=== PATIENT | female | born 1980 | race Caucasian/White ===

== ENCOUNTER 2016-12-02 18:32 | Emergency (ER) | payer OTHER ==
[~2016-12-02] VITALS: Ht 154.9 cm; Wt 88.6 kg
[2016-12-02] MEDS ORDERED: BUPR100 PO (18:45)
[2016-12-02] MEDS ORDERED: CLON1 PO (18:45)
[2016-12-02] MEDS ORDERED: FLUO-191 PO (18:45)
[2016-12-02 19:12] LABS: BASOPHILS % (AUTO) 0.5 % (0.0-2.0); EOSINOPHILS % (AUTO) 2.2 % (1.0-6.0); HEMATOCRIT 36.5 % (36-46); LYMPHOCYTES # (AUTO) 2.8 K/uL (1.0-4.8); LYMPHOCYTES % (AUTO) 33.9 % (22.0-44.0); MEAN CORPUSCULAR HEMOGLOBIN 29.3 pg (26.0-34.0); MEAN CORPUSCULAR HGB CONC 32.8 G/dL (31.0-37.0); MEAN CORPUSCULAR VOLUME 89 fL (80-100); MONOCYTES # (AUTO) 0.6 K/uL (0.1-1.0); MONOCYTES % (AUTO) 6.8 % (2.0-9.0); NEUTROPHILS # (AUTO) 4.7 K/uL (1.8-7.7); NEUTROPHILS % (AUTO) 56.6 % (40.0-70.0); PLATELET COUNT (AUTO) 288 K/uL (150-450); RED BLOOD CELL COUNT(AUTO) 4.09 MIL/uL (4.00-5.20); RED CELL DISTRIBUTION WIDTH 14.7 % (11.5-14.5); WHITE BLOOD COUNT (AUTO) 8.4 K/uL (4.5-11.0)
[2016-12-02 19:21] LABS: ANION GAP 8 mmol/L (8-16); CALCIUM, TOTAL 9.2 mg/dL (8.8-10.5); CARBON DIOXIDE 28 mmol/L (22-29); CHLORIDE 106 mmol/L (98-107); CREATININE 0.93 mg/dL (0.60-1.30); GLOMERULAR FILTR. RATE CALC > 60 mL/min (>60); POTASSIUM 3.8 mmol/L (3.5-5.1); SODIUM SERUM 142 mmol/L (136-145); UREA NITROGEN, BLOOD 15 mg/dL (7-18)
[2016-12-02 19:27] LABS: ALANINE AMINOTRANSFERASE 30 U/L (12-78); ALBUMIN 3.5 g/dL (3.4-5.0); ASPARTATE AMINOTRANSFERASE 21 U/L (15-37); BILIRUBIN,TOTAL 0.2 mg/dL (0.1-1.0); TOTAL PROTEIN, SERUM 6.8 g/dL (6.4-8.2)
[2016-12-02 20:06] LABS: APPEARANCE,URINE CLEAR (CLEAR); GLUCOSE, URINE (UA) NEGATIVE (NEGATIVE); KETONES,URINE NEGATIVE (NEGATIVE); LEUKOCYTE ESTERASE ,URINE NEGATIVE (NEGATIVE); OCCULT BLOOD,URINE NEGATIVE (NEGATIVE); PROTEIN,URINE NEGATIVE (NEGATIVE)
[2016-12-02 20:10] LABS: ADD UA MICROSCOPIC NO
[2016-12-02] MEDS ORDERED: LevETIRAcetam 1,000 MG in DEXTROSE 5%-WATER 100 ML IV ONE (20:30)
[2016-12-02] MEDS ORDERED: LORazepam 2 MG/ML VIAL IVP ONE (20:30)
[2016-12-02] MEDS ORDERED: KETOROLAC TROMETHAMINE 30 MG/ML VIAL IVP ONE (20:30)
[2016-12-02 21:39] VITALS: BP 125/75
== END 2016-12-02 21:41 | disposition home or self-care (01) ==
LOC: EMS 18:37
DX: G40.909 Epilepsy, unspecified, not intractable, without status epilepticus (principal); F41.9 Anxiety disorder, unspecified; G89.29 Other chronic pain
CPT/HCPCS: 36415; 80053; 80185; 80307; 80346; 81003; 84703; 85025; 96365; 96375; 99284; J0712; J1885; J2060; J7060

== ENCOUNTER 2017-09-07 16:20 | Emergency (ER) | payer OTHER ==
[~2017-09-07] VITALS: Ht 154.9 cm; Wt 81.8 kg
[~2017-09-07 16:20] MED LIST: BUPR100 PO; CLON1 PO; FLUO-191 PO
[2017-09-07 19:30] VITALS: BP 122/75
[2017-09-07] MEDS ORDERED: DEXAMETHASONE SOD PHOS 4 MG/ML 5 ML VIAL IM ONE (19:45)
== END 2017-09-07 19:55 | disposition home or self-care (01) ==
LOC: EMS 16:25
DX: J40 Bronchitis, not specified as acute or chronic (principal); F31.9 Bipolar disorder, unspecified; Z76.0 Encounter for issue of repeat prescription
CPT/HCPCS: 96372; 99283; J1100

== ENCOUNTER 2017-09-23 22:56 | Emergency (ER) | payer OTHER ==
[~2017-09-23] VITALS: Ht 162.6 cm; Wt 86.4 kg
[2017-09-24 03:37] VITALS: BP 110/63
== END 2017-09-24 03:41 | disposition home or self-care (01) ==
LOC: EMS 22:57
DX: F19.129 Other psychoactive substance abuse with intoxication, unspecified (principal); M79.604 Pain in right leg
CPT/HCPCS: 36415; 99283; G0480

== ENCOUNTER 2018-07-17 11:59 | Emergency (ER) | payer OTHER ==
[~2018-07-17] VITALS: Ht 154.9 cm; Wt 79.5 kg
[2018-07-17] MEDS ORDERED: LIDOCAINE 1%/EPI 1:200,000/PF 30 ML VIAL INJ ONE (12:45)
[2018-07-17] MEDS ORDERED: ACETAMINOPHEN 325 MG TABLET PO ONE (12:45)
[2018-07-17] MEDS ORDERED: KETOROLAC TROMETHAMINE 60 MG/2 ML VIAL IM ONE (12:45)
[2018-07-17 13:19] VITALS: BP 111/69
== END 2018-07-17 13:29 | disposition home or self-care (01) ==
LOC: EMS 12:00
DX: L02.31 Cutaneous abscess of buttock (principal); L03.317 Cellulitis of buttock; F31.9 Bipolar disorder, unspecified
CPT/HCPCS: 10060; 96372; 99283; J1885; J3490

== ENCOUNTER 2020-05-25 15:34 | Emergency (ER) | payer OTHER ==
[~2020-05-25] VITALS: Ht 154.9 cm; Wt 91.4 kg
[~2020-05-25 15:34] MED LIST changes: +ALPR0.5T8 PO; +CLIN300C3 PO; +CLON-595 PO; -CLON1 PO; +METH10 PO; +[UNRECOGNIZED DRUG - CODE] TP
[2020-05-25] MEDS ORDERED: KETOROLAC TROMETHAMINE 30 MG/ML VIAL IM ONE (17:45)
[2020-05-25] MEDS ORDERED: ONDANSETRON HCL 4 MG TABLET PO ONE (17:45)
[2020-05-25 18:30] VITALS: BP 123/81
[2020-05-25 19:01] LABS: BASOPHILS % (AUTO) 0.4 % (0.0-2.0); EOSINOPHILS % (AUTO) 1.4 % (1.0-6.0); HEMATOCRIT 38.3 % (36-46); HEMOGLOBIN 12.6 g/dL (12.0-16.0); LYMPHOCYTES # (AUTO) 2.8 K/uL (1.0-4.8); LYMPHOCYTES % (AUTO) 31.9 % (22.0-44.0); MEAN CORPUSCULAR HEMOGLOBIN 28.8 pg (26.0-34.0); MEAN CORPUSCULAR HGB CONC 32.9 G/dL (31.0-37.0); MEAN CORPUSCULAR VOLUME 88 fL (80-100); MONOCYTES # (AUTO) 0.5 K/uL (0.1-1.0); NEUTROPHILS # (AUTO) 5.3 K/uL (1.8-7.7); NEUTROPHILS % (AUTO) 60.3 % (40.0-70.0); PLATELET COUNT (AUTO) 357 K/uL (150-450); RED BLOOD CELL COUNT(AUTO) 4.37 MIL/uL (4.00-5.20); RED CELL DISTRIBUTION WIDTH 15.6 % (11.5-14.5)
[2020-05-25 19:10] LABS: CALCIUM, TOTAL 9.4 mg/dL (8.8-10.5); CREATININE 1.09 mg/dL (0.60-1.30); POTASSIUM 3.9 mmol/L (3.5-5.1)
[2020-05-25 19:22] LABS: ALBUMIN 3.8 g/dL (3.4-5.0); BILIRUBIN,TOTAL 0.1 mg/dL (0.1-1.0); TOTAL PROTEIN, SERUM 7.1 g/dL (6.4-8.2)
== END 2020-05-25 18:50 | disposition left against medical advice (07) ==
LOC: EMS 15:34
DX: R10.9 Unspecified abdominal pain (principal); F31.9 Bipolar disorder, unspecified; Z88.0 Allergy status to penicillin; Z88.5 Allergy status to narcotic agent
CPT/HCPCS: 36415; 80053; 81025; 83690; 84702; 85025; 96372; 99283; J1885; Q0162

== ENCOUNTER 2020-07-19 13:04 | Emergency (ER) | payer OTHER ==
[~2020-07-19] VITALS: Ht 149.9 cm; Wt 75.0 kg
[~2020-07-19 13:04] MED LIST changes: +BUPR-121 PO; -BUPR100 PO
[2020-07-19] MEDS ORDERED: SODIUM CHLORIDE 0.9% 1,000 ML IV ONE (14:30)
[2020-07-19] MEDS ORDERED: LORazepam 2 MG/ML VIAL IVP ONE (14:30)
[2020-07-19] MEDS ORDERED: ONDANSETRON HCL 4 MG/2 ML VIAL IVP ONE (14:30)
[2020-07-19 15:08] LABS: BASOPHILS % (AUTO) 0.2 % (0.0-2.0); EOSINOPHILS % (AUTO) 0.1 % (1.0-6.0); HEMATOCRIT 38.3 % (36-46); HEMOGLOBIN 12.7 g/dL (12.0-16.0); LYMPHOCYTES # (AUTO) 1.3 K/uL (1.0-4.8); LYMPHOCYTES % (AUTO) 12.7 % (22.0-44.0); MEAN CORPUSCULAR HEMOGLOBIN 29.2 pg (26.0-34.0); MEAN CORPUSCULAR HGB CONC 33.2 G/dL (31.0-37.0); MEAN CORPUSCULAR VOLUME 88 fL (80-100); MONOCYTES # (AUTO) 0.3 K/uL (0.1-1.0); NEUTROPHILS # (AUTO) 8.9 K/uL (1.8-7.7); PLATELET COUNT (AUTO) 354 K/uL (150-450); RED BLOOD CELL COUNT(AUTO) 4.36 MIL/uL (4.00-5.20); RED CELL DISTRIBUTION WIDTH 13.7 % (11.5-14.5)
[2020-07-19 15:18] LABS: ANION GAP 10 mmol/L (8-16); CALCIUM, TOTAL 9.2 mg/dL (8.8-10.5); CARBON DIOXIDE 26 mmol/L (22-29); CHLORIDE 97 mmol/L (98-107); CREATININE 0.81 mg/dL (0.60-1.30); GLOMERULAR FILTR. RATE CALC > 60 mL/min (>60); GLUCOSE,RANDOM 119 mg/dL (70-110); POTASSIUM 3.3 mmol/L (3.5-5.1); SODIUM SERUM 133 mmol/L (136-145); UREA NITROGEN, BLOOD 7 mg/dL (7-18)
[2020-07-19 15:26] LABS: APPEARANCE,URINE CLEAR (CLEAR); BILIRUBIN,URINE NEGATIVE (NEGATIVE); GLUCOSE, URINE (UA) NEGATIVE (NEGATIVE); KETONES,URINE NEGATIVE (NEGATIVE); LEUKOCYTE ESTERASE ,URINE NEGATIVE (NEGATIVE); NITRATE,URINE NEGATIVE (NEGATIVE); OCCULT BLOOD,URINE NEGATIVE (NEGATIVE); PROTEIN,URINE POS 1+ (NEGATIVE); UROBILINOGEN,URINE 0.2 mg/dL (<=1.0)
[2020-07-19 15:32] LABS: AMPHET/METH SCREEN,URINE POSITIVE (NEGATIVE); BARBITURATE SCREEN, URINE NEGATIVE (NEGATIVE); BENZODIAZEPINES SCREEN,URINE POSITIVE (NEGATIVE); CANNABINOID SCREEN,URINE NEGATIVE (NEGATIVE); COCAINE SCREEN,URINE NEGATIVE (NEGATIVE); METHADONE SCREEN, URINE POSITIVE (NEGATIVE); OPIATE SCREEN,URINE NEGATIVE (NEGATIVE); PHENCYCLIDINE SCREEN,URINE NEGATIVE (NEGATIVE)
[2020-07-19 15:42] LABS: ALANINE AMINOTRANSFERASE 25 U/L (12-78); ALBUMIN 3.8 g/dL (3.4-5.0); ALKALINE PHOSPHATASE 77 U/L (46-116); ASPARTATE AMINOTRANSFERASE 17 U/L (15-37); BILIRUBIN,TOTAL 0.5 mg/dL (0.1-1.0); CREATINE KINASE, TOTAL ONLY 185 U/L (26-192); HCG,QUANTITATIVE 1 mIU/mL (0-6); LIPASE 61 U/L (73-393); TOTAL PROTEIN, SERUM 8.1 g/dL (6.4-8.2)
[2020-07-19] MEDS ORDERED: POTASSIUM CHLORIDE 20 MEQ ER TABLET PO ONE (15:45)
[2020-07-19 15:55] LABS: BACTERIA,URINE Rare /HPF (None Seen); RBC,URINE 0-2 /HPF (0-2); SQUAMOUS EPITHELIAL CELL,UR Moderate /LPF (None Seen); WBC,URINE 0-2 /HPF (0-5)
[2020-07-19] MEDS ORDERED: KETOROLAC TROMETHAMINE 30 MG/ML VIAL IVP ONE (16:00)
[2020-07-19] MEDS ORDERED: CefTRIAXone SODIUM 1 GM/VIAL IM ONE (16:00)
[2020-07-19] MEDS ORDERED: AZITHROMYCIN 500 MG TABLET PO ONE (16:00)
[2020-07-19 16:45] VITALS: BP 127/78
== END 2020-07-19 17:13 | disposition home or self-care (01) ==
LOC: EMS 13:04
DX: R56.9 Unspecified convulsions (principal); E87.6 Hypokalemia; F15.10 Other stimulant abuse, uncomplicated; R10.30 Lower abdominal pain, unspecified; F32.9 Major depressive disorder, single episode, unspecified; F11.90 Opioid use, unspecified, uncomplicated; Z88.0 Allergy status to penicillin; Z88.5 Allergy status to narcotic agent
CPT/HCPCS: 36415; 80053; 80307; 81001; 82550; 83690; 83735; 84702; 85025; 87491; 87591; 93005; 96361; 96372; 96374; 96375; 99285; G0480; J0696; J1885; J2060; J2405; J7030

== ENCOUNTER 2020-11-09 16:05 | Emergency (ER) | payer OTHER ==
[~2020-11-09] VITALS: Ht 165.1 cm; Wt 81.8 kg
[2020-11-09] MEDS ORDERED: NALOXONE HCL 1 MG/ML 2 ML SYG IVP ONE (17:15)
[2020-11-09] MEDS ORDERED: SODIUM CHLORIDE 0.9% 1,000 ML IV ONE (17:15)
[2020-11-09 18:10] LABS: BASOPHILS % (AUTO) 0.4 % (0.0-2.0); EOSINOPHILS % (AUTO) 1.8 % (1.0-6.0); HEMATOCRIT 32.1 % (36-46); HEMOGLOBIN 10.5 g/dL (12.0-16.0); LYMPHOCYTES # (AUTO) 2.5 K/uL (1.0-4.8); LYMPHOCYTES % (AUTO) 29.8 % (22.0-44.0); MEAN CORPUSCULAR HEMOGLOBIN 28.8 pg (26.0-34.0); MEAN CORPUSCULAR HGB CONC 32.9 G/dL (31.0-37.0); MEAN CORPUSCULAR VOLUME 88 fL (80-100); MONOCYTES # (AUTO) 0.5 K/uL (0.1-1.0); MONOCYTES % (AUTO) 5.8 % (2.0-9.0); NEUTROPHILS # (AUTO) 5.2 K/uL (1.8-7.7); NEUTROPHILS % (AUTO) 62.2 % (40.0-70.0); PLATELET COUNT (AUTO) 325 K/uL (150-450); RED BLOOD CELL COUNT(AUTO) 3.66 MIL/uL (4.00-5.20); RED CELL DISTRIBUTION WIDTH 14.8 % (11.5-14.5)
[2020-11-09 18:17] LABS: COVID AG,FIA SOURCE NASOPHARYNGEAL
[2020-11-09 18:25] LABS: ANION GAP 12 mmol/L (8-16); CALCIUM, TOTAL 9.1 mg/dL (8.8-10.5); CARBON DIOXIDE 25 mmol/L (22-29); CHLORIDE 105 mmol/L (98-107); CREATININE 1.08 mg/dL (0.60-1.30); GLOMERULAR FILTR. RATE CALC 56 mL/min (>60); GLUCOSE,RANDOM 76 mg/dL (70-110); POTASSIUM 3.2 mmol/L (3.5-5.1); SODIUM SERUM 142 mmol/L (136-145); UREA NITROGEN, BLOOD 21 mg/dL (7-18)
[2020-11-09 18:30] LABS: ALANINE AMINOTRANSFERASE 28 U/L (12-78); ALBUMIN 3.8 g/dL (3.4-5.0); ALKALINE PHOSPHATASE 70 U/L (46-116); ASPARTATE AMINOTRANSFERASE 25 U/L (15-37); BILIRUBIN,TOTAL 0.5 mg/dL (0.1-1.0); TOTAL PROTEIN, SERUM 7.6 g/dL (6.4-8.2)
[2020-11-09 18:58] LABS: ACETAMINOPHEN < 2 mcg/mL (10-30)
[2020-11-09 19:27] LABS: SALICYLATE < 2.8 mg/dL (2.8-20.0)
[2020-11-09 19:42] LABS: AMPHET/METH SCREEN,URINE POSITIVE (NEGATIVE); BARBITURATE SCREEN, URINE NEGATIVE (NEGATIVE); BENZODIAZEPINES SCREEN,URINE POSITIVE (NEGATIVE); CANNABINOID SCREEN,URINE NEGATIVE (NEGATIVE); COCAINE SCREEN,URINE POSITIVE (NEGATIVE); METHADONE SCREEN, URINE POSITIVE (NEGATIVE); OPIATE SCREEN,URINE POSITIVE (NEGATIVE)
[2020-11-09 20:04] LABS: PHENCYCLIDINE SCREEN,URINE NEGATIVE (NEGATIVE)
[2020-11-10] MEDS: LevETIRAcetam 1,000 MG in DEXTROSE 5%-WATER 100 ML IV ONE ×2 (02:52→03:00)
[2020-11-10 11:00] VITALS: BP 106/58
== END 2020-11-10 11:22 | disposition home or self-care (01) ==
LOC: EMS 16:05
DX: T40.1X1A Poisoning by heroin, accidental (unintentional), initial encounter (principal); F17.210 Nicotine dependence, cigarettes, uncomplicated; F11.90 Opioid use, unspecified, uncomplicated; F15.90 Other stimulant use, unspecified, uncomplicated; Z88.0 Allergy status to penicillin; Z88.5 Allergy status to narcotic agent; Z20.822 Contact with and (suspected) exposure to COVID-19; Y92.89 Other specified places as the place of occurrence of the external cause
CPT/HCPCS: 36415; 70450; 71045; 72125; 80053; 80307; 84702; 85025; 87426; 93005; 96361; 96374; 99291; G0480; J0712; J2310; J7030; J7060; 51702; G0481

== ENCOUNTER 2021-06-13 13:49 | Emergency (ER) | payer OTHER ==
[~2021-06-13] VITALS: Ht 152.4 cm; Wt 109.1 kg
[~2021-06-13 13:49] MED LIST changes: -ALPR0.5T8 PO; -CLIN300C3 PO; -CLON-595 PO; +LEVE500T20 PO; -[UNRECOGNIZED DRUG - CODE] TP
[2021-06-13 16:11] LABS: APPEARANCE,URINE CLEAR (CLEAR); BILIRUBIN,URINE NEGATIVE (NEGATIVE); GLUCOSE, URINE (UA) NEGATIVE (NEGATIVE); KETONES,URINE NEGATIVE (NEGATIVE); LEUKOCYTE ESTERASE ,URINE NEGATIVE (NEGATIVE); NITRATE,URINE NEGATIVE (NEGATIVE); OCCULT BLOOD,URINE NEGATIVE (NEGATIVE); PH,URINE 5.5 (5.0-8.0); PROTEIN,URINE NEGATIVE (NEGATIVE); UROBILINOGEN,URINE 0.2 mg/dL (<=1.0)
[2021-06-13 18:40] VITALS: BP 125/97
== END 2021-06-13 19:05 | disposition left against medical advice (07) ==
LOC: EMS 14:08
DX: R10.2 Pelvic and perineal pain (principal); F41.9 Anxiety disorder, unspecified; F32.9 Major depressive disorder, single episode, unspecified; F17.210 Nicotine dependence, cigarettes, uncomplicated; F11.90 Opioid use, unspecified, uncomplicated; Z88.0 Allergy status to penicillin; Z88.5 Allergy status to narcotic agent
CPT/HCPCS: 81003; 84703; 99283

== ENCOUNTER 2021-06-25 13:12 | Emergency (ER) | payer OTHER ==
[~2021-06-25] VITALS: Ht 154.9 cm; Wt 81.8 kg
[2021-06-25] MEDS ORDERED: HydrOXYzine PAMOATE 25 MG CAPSULE PO ONE (15:00)
[2021-06-25 16:18] VITALS: BP 114/73
== END 2021-06-25 16:34 | disposition home or self-care (01) ==
LOC: EMS 13:12
DX: R30.0 Dysuria (principal); R10.30 Lower abdominal pain, unspecified; F32.9 Major depressive disorder, single episode, unspecified; F41.9 Anxiety disorder, unspecified; F17.210 Nicotine dependence, cigarettes, uncomplicated; F11.90 Opioid use, unspecified, uncomplicated; Z88.0 Allergy status to penicillin; Z88.5 Allergy status to narcotic agent; Z79.899 Other long term (current) drug therapy
CPT/HCPCS: 76856; 81002; 99284; Z7502; Z7610

== ENCOUNTER 2021-09-22 22:22 | Emergency (ER) | payer OTHER ==
[~2021-09-22] VITALS: Ht 165.1 cm; Wt 70.0 kg
[2021-09-23 03:19] VITALS: BP 134/91
== END 2021-09-23 03:38 | disposition home or self-care (01) ==
LOC: EMS 22:22
DX: S00.83XA Contusion of other part of head, initial encounter (principal); F32.9 Major depressive disorder, single episode, unspecified; F41.9 Anxiety disorder, unspecified; F17.210 Nicotine dependence, cigarettes, uncomplicated; Z88.0 Allergy status to penicillin; Z88.5 Allergy status to narcotic agent; Z79.899 Other long term (current) drug therapy; Y04.0XXA Assault by unarmed brawl or fight, initial encounter; Y93.89 Activity, other specified; Y92.89 Other specified places as the place of occurrence of the external cause; Y99.8 Other external cause status
CPT/HCPCS: 70450; 99284

== ENCOUNTER 2022-01-25 20:01 | Emergency (ER) | payer OTHER ==
[~2022-01-25] VITALS: Ht 167.6 cm; Wt 100.0 kg
[~2022-01-25 20:01] MED LIST changes: -BUPR-121 PO; +BUPR-345 PO; +FLUO-177 PO; -FLUO-191 PO
[2022-01-25] MEDS ORDERED: SODIUM CHLORIDE 0.9% 1,000 ML IV ONE (20:15)
[2022-01-25 20:32] LABS: BASOPHILS % (AUTO) 0.4 % (0.0-2.0); EOSINOPHILS % (AUTO) 3.4 % (1.0-6.0); HEMATOCRIT 32.9 % (36-46); HEMOGLOBIN 10.8 g/dL (12.0-16.0); LYMPHOCYTES # (AUTO) 2.9 K/uL (1.0-4.8); MEAN CORPUSCULAR HEMOGLOBIN 29.3 pg (26.0-34.0); MEAN CORPUSCULAR HGB CONC 32.9 G/dL (31.0-37.0); MEAN CORPUSCULAR VOLUME 89 fL (80-100); MONOCYTES # (AUTO) 0.6 K/uL (0.1-1.0); MONOCYTES % (AUTO) 8.1 % (2.0-9.0); NEUTROPHILS % (AUTO) 45.1 % (40.0-70.0); PLATELET COUNT (AUTO) 266 K/uL (150-450); RED BLOOD CELL COUNT(AUTO) 3.71 MIL/uL (4.00-5.20); RED CELL DISTRIBUTION WIDTH 13.5 % (11.5-14.5)
[2022-01-25 20:49] LABS: ANION GAP 10 mmol/L (8-16); CALCIUM, TOTAL 9.3 mg/dL (8.8-10.5); CARBON DIOXIDE 27 mmol/L (22-29); CHLORIDE 105 mmol/L (98-107); CREATININE 0.98 mg/dL (0.60-1.30); GLOMERULAR FILTR. RATE CALC > 60 mL/min (>60); GLUCOSE,RANDOM 121 mg/dL (70-110); POTASSIUM 4.6 mmol/L (3.5-5.1); SODIUM SERUM 142 mmol/L (136-145); UREA NITROGEN, BLOOD 16 mg/dL (7-18)
[2022-01-25 20:55] LABS: ALANINE AMINOTRANSFERASE 32 U/L (12-78); ALBUMIN 3.7 g/dL (3.4-5.0); ALKALINE PHOSPHATASE 60 U/L (46-116); ASPARTATE AMINOTRANSFERASE 33 U/L (15-37); BILIRUBIN,TOTAL 0.2 mg/dL (0.1-1.0); TOTAL PROTEIN, SERUM 6.8 g/dL (6.4-8.2)
[2022-01-26 06:56] VITALS: BP 119/77
== END 2022-01-26 07:44 | disposition home or self-care (01) ==
LOC: EDUNIT# 20:01 → EMS 20:02
DX: T50.7X1A Poisoning by analeptics and opioid receptor antagonists, accidental (unintentional), initial encounter (principal); F41.9 Anxiety disorder, unspecified; F32.9 Major depressive disorder, single episode, unspecified; R50.9 Fever, unspecified; Y92.89 Other specified places as the place of occurrence of the external cause
CPT/HCPCS: 36415; 80053; 84703; 85025; 96360; 99285; G0480; J7030

== ENCOUNTER 2022-02-27 10:37 | Emergency (ER) | payer OTHER ==
[~2022-02-27] VITALS: Ht 157.5 cm; Wt 95.5 kg
[2022-02-27 10:54] VITALS: BP 109/70
[2022-02-27 11:19] LABS: BASOPHILS % (AUTO) 0.4 % (0.0-2.0); EOSINOPHILS % (AUTO) 1.3 % (1.0-6.0); HEMATOCRIT 36.2 % (36-46); HEMOGLOBIN 11.9 g/dL (12.0-16.0); LYMPHOCYTES # (AUTO) 2.3 K/uL (1.0-4.8); LYMPHOCYTES % (AUTO) 22.5 % (22.0-44.0); MEAN CORPUSCULAR HEMOGLOBIN 28.8 pg (26.0-34.0); MEAN CORPUSCULAR HGB CONC 32.9 G/dL (31.0-37.0); MEAN CORPUSCULAR VOLUME 88 fL (80-100); MONOCYTES # (AUTO) 0.7 K/uL (0.1-1.0); MONOCYTES % (AUTO) 6.4 % (2.0-9.0); NEUTROPHILS # (AUTO) 7.1 K/uL (1.8-7.7); NEUTROPHILS % (AUTO) 69.4 % (40.0-70.0); PLATELET COUNT (AUTO) 277 K/uL (150-450); RED BLOOD CELL COUNT(AUTO) 4.14 MIL/uL (4.00-5.20); RED CELL DISTRIBUTION WIDTH 13.9 % (11.5-14.5)
[2022-02-27 11:27] LABS: CARBON DIOXIDE 28 mmol/L (22-29); CHLORIDE 101 mmol/L (98-107); POTASSIUM 3.6 mmol/L (3.5-5.1); SODIUM SERUM 138 mmol/L (136-145)
[2022-02-27 11:28] LABS: ANION GAP 9 mmol/L (8-16); CALCIUM, TOTAL 9.4 mg/dL (8.8-10.5); CREATININE 1.14 mg/dL (0.60-1.30); GLOMERULAR FILTR. RATE CALC 52 mL/min (>60); GLUCOSE,RANDOM 115 mg/dL (70-110); UREA NITROGEN, BLOOD 18 mg/dL (7-18)
[2022-02-27 11:32] LABS: ALANINE AMINOTRANSFERASE 35 U/L (12-78); ALBUMIN 3.7 g/dL (3.4-5.0); ALKALINE PHOSPHATASE 74 U/L (46-116); ASPARTATE AMINOTRANSFERASE 22 U/L (15-37); BILIRUBIN,TOTAL 0.7 mg/dL (0.1-1.0); TOTAL PROTEIN, SERUM 7.7 g/dL (6.4-8.2)
[2022-02-27] MEDS ORDERED: BUPR-50 PO (11:42)
[2022-02-27] MEDS ORDERED: CLON-595 PO (11:42)
[2022-02-27 13:00] LABS: AMPHET/METH SCREEN,URINE POSITIVE (NEGATIVE); BARBITURATE SCREEN, URINE NEGATIVE (NEGATIVE); BENZODIAZEPINES SCREEN,URINE POSITIVE (NEGATIVE); CANNABINOID SCREEN,URINE NEGATIVE (NEGATIVE); COCAINE SCREEN,URINE NEGATIVE (NEGATIVE); METHADONE SCREEN, URINE POSITIVE (NEGATIVE); OPIATE SCREEN,URINE NEGATIVE (NEGATIVE); PHENCYCLIDINE SCREEN,URINE NEGATIVE (NEGATIVE)
== END 2022-02-27 13:33 | disposition home or self-care (01) ==
LOC: EMS 10:39
DX: F31.9 Bipolar disorder, unspecified (principal); F41.9 Anxiety disorder, unspecified; F17.210 Nicotine dependence, cigarettes, uncomplicated; Z88.0 Allergy status to penicillin; Z88.5 Allergy status to narcotic agent; Z79.899 Other long term (current) drug therapy
CPT/HCPCS: 36415; 80053; 80307; 85025; 99285; G0480

== ENCOUNTER 2022-03-14 16:39 | Emergency (ER) | payer OTHER ==
[~2022-03-14] VITALS: Ht 154.9 cm; Wt 72.7 kg
[~2022-03-14 16:39] MED LIST changes: +BUPR-50 PO; +CLON-595 PO
[2022-03-14] MEDS: ALPRAZolam 0.25 MG TABLET PO ONE (17:46)
[2022-03-14] MEDS: ACETAMINOPHEN 500 MG TABLET PO ONE (21:10)
[2022-03-14 21:13] VITALS: BP 138/81
[2022-03-14 22:54] LABS: APPEARANCE,URINE CLEAR (CLEAR); BILIRUBIN,URINE NEGATIVE (NEGATIVE); GLUCOSE, URINE (UA) NEGATIVE (NEGATIVE); LEUKOCYTE ESTERASE ,URINE TRACE (NEGATIVE); NITRATE,URINE NEGATIVE (NEGATIVE); OCCULT BLOOD,URINE LARGE (NEGATIVE); PROTEIN,URINE NEGATIVE (NEGATIVE); SPECIFIC GRAVITIY, URINE 1.017 (1.003-1.030); UROBILINOGEN,URINE <=1.0 mg/dL (<=1.0)
[2022-03-14 23:04] LABS: BACTERIA,URINE None Seen /HPF (None Seen); RBC,URINE 26-50 /HPF (0-2); WBC,URINE 0-2 /HPF (0-5)
[2022-03-14 23:05] LABS: SQUAMOUS EPITHELIAL CELL,UR Moderate /LPF (None Seen)
== END 2022-03-14 21:46 | disposition home or self-care (01) ==
LOC: EMS 16:44
DX: F41.9 Anxiety disorder, unspecified (principal); F31.9 Bipolar disorder, unspecified; F42.9 Obsessive-compulsive disorder, unspecified; F41.0 Panic disorder [episodic paroxysmal anxiety]; F17.210 Nicotine dependence, cigarettes, uncomplicated; Z86.69 Personal history of other diseases of the nervous system and sense organs; Z98.890 Other specified postprocedural states; Z88.0 Allergy status to penicillin; Z88.5 Allergy status to narcotic agent
CPT/HCPCS: 81001; 99283

== ENCOUNTER 2022-07-21 11:56 | Emergency (ER) | payer OTHER ==
[~2022-07-21] VITALS: Ht 154.9 cm; Wt 79.5 kg
[2022-07-21] MEDS ORDERED: POVIDONE-IODINE 10% 15 ML SOLUTION UD TP ONE (13:45)
[2022-07-21] MEDS ORDERED: LIDOCAINE 1% 10 ML VIAL PERC ONE (13:45)
[2022-07-21] MEDS ORDERED: IBUPROFEN 600 MG TABLET PO ONE (14:45)
[2022-07-21] MEDS ORDERED: HYDROCODONE/ACETAMINOPHEN 5-325 MG TABLET PO ONE (14:45)
[2022-07-21] MEDS ORDERED: DOXYCYCLINE HYCLATE 100 MG TABLET PO ONE (14:45)
[2022-07-21] MEDS ORDERED: DOXY-354 PO (15:10)
[2022-07-21] MEDS ORDERED: IBUP-2070 PO (15:12)
[2022-07-21 15:40] VITALS: BP 120/59
== END 2022-07-21 15:42 | disposition home or self-care (01) ==
LOC: EMS 11:58
DX: L03.114 Cellulitis of left upper limb (principal); F41.9 Anxiety disorder, unspecified; F31.9 Bipolar disorder, unspecified; F42.9 Obsessive-compulsive disorder, unspecified; Z88.0 Allergy status to penicillin; Z88.5 Allergy status to narcotic agent
CPT/HCPCS: 99284; 10060; 84703; 36415; 81025; J3490

== ENCOUNTER 2022-10-25 13:33 | Inpatient (IN) | payer MEDICAID, OTHER ==
[~2022-10-25] VITALS: Ht 154.9 cm; Wt 87.0 kg
[~2022-10-25 13:33] MED LIST changes: +DOXY-354 PO; +IBUP-1492 PO
[2022-10-25] MEDS ORDERED: PRAZ2 PO (14:13)
[2022-10-25] MEDS ORDERED: ALPR2TAB7 PO (14:13)
[2022-10-25] MEDS ORDERED: BUSP5TAB20 PO (14:13)
[2022-10-25 14:22] LABS: BASOPHILS % (AUTO) 0.5 % (0.0-2.0); EOSINOPHILS % (AUTO) 3.5 % (1.0-6.0); HEMATOCRIT 34.2 % (36-46); HEMOGLOBIN 11.1 g/dL (12.0-16.0); LYMPHOCYTES # (AUTO) 2.3 K/uL (1.0-4.8); LYMPHOCYTES % (AUTO) 27.1 % (22.0-44.0); MEAN CORPUSCULAR HEMOGLOBIN 28.5 pg (26.0-34.0); MEAN CORPUSCULAR HGB CONC 32.5 G/dL (31.0-37.0); MEAN CORPUSCULAR VOLUME 88 fL (80-100); MONOCYTES # (AUTO) 0.5 K/uL (0.1-1.0); MONOCYTES % (AUTO) 5.8 % (2.0-9.0); NEUTROPHILS # (AUTO) 5.3 K/uL (1.8-7.7); NEUTROPHILS % (AUTO) 63.1 % (40.0-70.0); PLATELET COUNT (AUTO) 297 K/uL (150-450); RED BLOOD CELL COUNT(AUTO) 3.88 MIL/uL (4.00-5.20)
[2022-10-25 14:24] LABS: COVID AG,FIA SOURCE NASOPHARYNGEAL
[2022-10-25 14:32] LABS: ANION GAP 7 mmol/L (8-16); CALCIUM, TOTAL 8.8 mg/dL (8.8-10.5); CARBON DIOXIDE 31 mmol/L (22-29); CHLORIDE 101 mmol/L (98-107); CREATININE 0.88 mg/dL (0.60-1.30); GLOMERULAR FILTR. RATE CALC > 60 mL/min (>60); GLUCOSE,RANDOM 75 mg/dL (70-110); POTASSIUM 3.7 mmol/L (3.5-5.1); SODIUM SERUM 139 mmol/L (136-145); UREA NITROGEN, BLOOD 9 mg/dL (7-18)
[2022-10-25 14:38] LABS: ALANINE AMINOTRANSFERASE 25 U/L (12-78); ALBUMIN 3.4 g/dL (3.4-5.0); ALKALINE PHOSPHATASE 80 U/L (46-116); ASPARTATE AMINOTRANSFERASE 22 U/L (15-37); BILIRUBIN,TOTAL 0.3 mg/dL (0.1-1.0); TOTAL PROTEIN, SERUM 7.3 g/dL (6.4-8.2)
[2022-10-25] MEDS: LORazepam 2 MG TABLET PO PRN (20:25)
[2022-10-25] MEDS: HALOPERIDOL 5 MG TABLET PO PRN (20:25)
[2022-10-26 07:26] LABS: AMPHET/METH SCREEN,URINE POSITIVE (NEGATIVE); BARBITURATE SCREEN, URINE NEGATIVE (NEGATIVE); BENZODIAZEPINES SCREEN,URINE POSITIVE (NEGATIVE); CANNABINOID SCREEN,URINE NEGATIVE (NEGATIVE); COCAINE SCREEN,URINE NEGATIVE (NEGATIVE); METHADONE SCREEN, URINE POSITIVE (NEGATIVE); OPIATE SCREEN,URINE NEGATIVE (NEGATIVE); PHENCYCLIDINE SCREEN,URINE NEGATIVE (NEGATIVE)
[2022-10-26] MEDS: LORazepam 2 MG TABLET PO PRN (09:13)
[2022-10-26] MEDS: HALOPERIDOL 5 MG TABLET PO PRN (09:13)
[2022-10-26] MEDS ORDERED: FLUO20CA36 PO (09:17)
[2022-10-26] MEDS ORDERED: BUPR-317 PO (09:17)
[2022-10-27 08:14] LABS: THYROID STIMULATING HORMONE 5.76 uIU/mL (0.36-3.74)
[2022-10-27 08:26] VITALS: BP 106/60
[2022-10-27 09:00] VITALS: BP 106/60
[2022-10-27] MEDS: BuPROPion HCL XL 150 MG ER TABLET PO SCH (10:02)
[2022-10-27] MEDS: BusPIRone HCL 5 MG TABLET PO SCH ×3 (10:02→20:45)
[2022-10-27] MEDS: FLUoxetine HCL 20 MG CAPSULE PO SCH (10:02)
[2022-10-27] MEDS ORDERED: MAGNESIUM HYDROXIDE SUSPENSION 30 ML UDCUP PO PRN (15:45)
[2022-10-27] MEDS ORDERED: ACETAMINOPHEN 325 MG TABLET PO PRN (15:45)
[2022-10-27] MEDS ORDERED: GuaiFENesin/D-METHORPHAN [SUGAR-FREE] 200-20MG/10 ML SYRUP UDCUP PO PRN (15:45)
[2022-10-27] MEDS ORDERED: IBUPROFEN 400 MG TABLET PO PRN (15:45)
[2022-10-27] MEDS ORDERED: ONDANSETRON HCL 4 MG TABLET PO PRN (15:45)
[2022-10-27] MEDS ORDERED: ALBUTEROL SULFATE HFA 90 MCG/PUFF 8 GM INHALER IH PRN (15:45)
[2022-10-27] MEDS ORDERED: NICOTINE 14 MG/24 HOUR PATCH TD PRN (15:45)
[2022-10-27] MEDS ORDERED: PETROLATUM,WHITE 28 GM JELLY TP PRN (15:45)
[2022-10-27] MEDS ORDERED: LOPERAMIDE HCL 2 MG CAPSULE PO PRN (15:45)
[2022-10-27] MEDS ORDERED: DOCUSATE SODIUM 100 MG CAPSULE PO PRN (15:45)
[2022-10-27] MEDS ORDERED: CloNIDine HCL 0.1 MG TABLET PO PRN (15:45)
[2022-10-27] MEDS ORDERED: MAG HYDROX/AL HYDROX/SIMETH ES 30 ML SUSPENSION UDCUP PO PRN (15:45)
[2022-10-27] MEDS: LevETIRAcetam 500 MG TABLET PO SCH (16:44)
[2022-10-27] MEDS: LORazepam 2 MG TABLET PO PRN (16:44)
[2022-10-27 20:00] VITALS: BP 122/70
[2022-10-27] MEDS: ZOLPIDEM TARTRATE 10 MG TABLET PO PRN (20:45)
[2022-10-28] MEDS: BuPROPion HCL XL 150 MG ER TABLET PO SCH (08:14)
[2022-10-28] MEDS: LevETIRAcetam 500 MG TABLET PO SCH ×2 (08:14→17:15)
[2022-10-28] MEDS: BusPIRone HCL 5 MG TABLET PO SCH ×3 (08:14→20:37)
[2022-10-28] MEDS: FLUoxetine HCL 20 MG CAPSULE PO SCH (08:14)
[2022-10-28 09:00] VITALS: BP 114/74
[2022-10-28] MEDS: LORazepam 2 MG TABLET PO PRN ×3 (09:35→21:32)
[2022-10-28] MEDS: METHADONE HCL 10 MG TABLET PO SCH (12:43)
[2022-10-28 20:23] VITALS: BP 109/63
[2022-10-28] MEDS: ZOLPIDEM TARTRATE 10 MG TABLET PO PRN (20:37)
[2022-10-29 08:23] VITALS: BP 100/62
[2022-10-29] MEDS: BusPIRone HCL 5 MG TABLET PO SCH (09:25)
[2022-10-29] MEDS: METHADONE HCL 10 MG TABLET PO SCH (09:25)
[2022-10-29] MEDS: LevETIRAcetam 500 MG TABLET PO SCH (09:25)
[2022-10-29] MEDS: BuPROPion HCL XL 150 MG ER TABLET PO SCH (09:25)
[2022-10-29] MEDS: FLUoxetine HCL 20 MG CAPSULE PO SCH (09:25)
[2022-10-29] MEDS: LORazepam 2 MG TABLET PO PRN (10:04)
[2022-10-30] MEDS ORDERED: BUPR-50 PO (05:46)
[2022-10-30] MEDS ORDERED: FLUO20CA36 PO (05:46)
[2022-10-30] MEDS ORDERED: BUSP5TAB20 PO (05:46)
[2022-10-30] MEDS ORDERED: LEVE500T20 PO (05:46)
== END 2022-10-29 15:50 | disposition home or self-care (01) | DRG 750 ==
LOC: EMS 13:35 → B3A 10-26 18:52
PROVIDERS: ADMIT Psychiatry & Neurology Psychiatry; ATTEND Psychiatry & Neurology Psychiatry
DX: F25.0 Schizoaffective disorder, bipolar type (principal); G40.909 Epilepsy, unspecified, not intractable, without status epilepticus; D64.9 Anemia, unspecified; F11.20 Opioid dependence, uncomplicated; Z20.822 Contact with and (suspected) exposure to COVID-19; F15.10 Other stimulant abuse, uncomplicated; F31.9 Bipolar disorder, unspecified; F41.0 Panic disorder [episodic paroxysmal anxiety]; F42.9 Obsessive-compulsive disorder, unspecified; Z79.899 Other long term (current) drug therapy; Z81.8 Family history of other mental and behavioral disorders; Z88.0 Allergy status to penicillin; Z88.5 Allergy status to narcotic agent
CPT/HCPCS: 80053; 80061; 80307; 83036; 84439; 84443; 84703; 85025; 99285; G0480

== ENCOUNTER 2022-11-11 10:13 | Emergency (ER) | payer MEDICAID, OTHER ==
[~2022-11-11] VITALS: Ht 152.4 cm; Wt 86.4 kg
[~2022-11-11 10:13] MED LIST changes: -BUPR-345 PO; +BUSP5TAB20 PO; -CLON-595 PO; -DOXY-354 PO; -FLUO-177 PO; +FLUO20CA36 PO; -IBUP-1492 PO; -METH10 PO
[2022-11-11] MEDS ORDERED: ACETAMINOPHEN 325 MG TABLET PO ONE (11:15)
[2022-11-11] MEDS ORDERED: SODIUM CHLORIDE 0.9% 100 ML ONE (11:37)
[2022-11-11] MEDS ORDERED: IOHEXOL 350 MG/ML 100 ML VIAL ONE (11:37)
[2022-11-11 11:50] LABS: BASOPHILS % (AUTO) 0.1 % (0.0-2.0); EOSINOPHILS % (AUTO) 0 % (1.0-6.0); HEMATOCRIT 40.3 % (36-46); HEMOGLOBIN 13.2 g/dL (12.0-16.0); LYMPHOCYTES # (AUTO) 1.2 K/uL (1.0-4.8); LYMPHOCYTES % (AUTO) 15.6 % (22.0-44.0); MEAN CORPUSCULAR HEMOGLOBIN 28.2 pg (26.0-34.0); MEAN CORPUSCULAR HGB CONC 32.7 G/dL (31.0-37.0); MEAN CORPUSCULAR VOLUME 86 fL (80-100); MONOCYTES # (AUTO) 0.2 K/uL (0.1-1.0); MONOCYTES % (AUTO) 2.2 % (2.0-9.0); NEUTROPHILS # (AUTO) 6.5 K/uL (1.8-7.7); NEUTROPHILS % (AUTO) 82.1 % (40.0-70.0); PLATELET COUNT (AUTO) 382 K/uL (150-450); RED BLOOD CELL COUNT(AUTO) 4.68 MIL/uL (4.00-5.20); RED CELL DISTRIBUTION WIDTH 14.3 % (11.5-14.5)
[2022-11-11 12:07] LABS: ANION GAP 13 mmol/L (8-16); CALCIUM, TOTAL 9.9 mg/dL (8.8-10.5); CARBON DIOXIDE 25 mmol/L (22-29); CHLORIDE 100 mmol/L (98-107); CREATININE 0.69 mg/dL (0.60-1.30); GLOMERULAR FILTR. RATE CALC > 60 mL/min (>60); GLUCOSE,RANDOM 113 mg/dL (70-110); SODIUM SERUM 138 mmol/L (136-145); UREA NITROGEN, BLOOD 10 mg/dL (7-18)
[2022-11-11 12:13] LABS: ALANINE AMINOTRANSFERASE 24 U/L (12-78); ALKALINE PHOSPHATASE 76 U/L (46-116); ASPARTATE AMINOTRANSFERASE 18 U/L (15-37); BILIRUBIN,TOTAL 0.5 mg/dL (0.1-1.0); TOTAL PROTEIN, SERUM 8.4 g/dL (6.4-8.2)
[2022-11-11 12:49] VITALS: BP 147/96
[2022-11-11 12:50] LABS: APPEARANCE,URINE CLEAR (CLEAR); BILIRUBIN,URINE NEGATIVE (NEGATIVE); GLUCOSE, URINE (UA) NEGATIVE (NEGATIVE); KETONES,URINE =>150 mg/dL (NEGATIVE); LEUKOCYTE ESTERASE ,URINE SMALL (NEGATIVE); NITRATE,URINE NEGATIVE (NEGATIVE); OCCULT BLOOD,URINE LARGE (NEGATIVE); PH,URINE 6.5 (5.0-8.0); PROTEIN,URINE 30-70 mg/dL (NEGATIVE); SPECIFIC GRAVITIY, URINE 1.028 (1.003-1.030)
[2022-11-11] MEDS ORDERED: POTASSIUM CHLORIDE 20 MEQ ER TABLET PO ONE (13:00)
[2022-11-11 13:10] LABS: BACTERIA,URINE Few /HPF (None Seen); RBC,URINE 26-50 /HPF (0-2); SQUAMOUS EPITHELIAL CELL,UR Few /LPF (None Seen)
[2022-11-11 13:32] LABS: HCG,QUANTITATIVE < 1 mIU/mL (0-6)
== END 2022-11-11 12:45 | disposition left against medical advice (07) ==
LOC: EMS 10:27
DX: R10.32 Left lower quadrant pain (principal); F11.20 Opioid dependence, uncomplicated; E87.6 Hypokalemia; F41.9 Anxiety disorder, unspecified; F31.9 Bipolar disorder, unspecified; G89.29 Other chronic pain; F41.0 Panic disorder [episodic paroxysmal anxiety]; Z88.0 Allergy status to penicillin; Z88.5 Allergy status to narcotic agent; Z53.29 Procedure and treatment not carried out because of patient's decision for other reasons; Y09 Assault by unspecified means; R31.9 Hematuria, unspecified
CPT/HCPCS: 99284; 80053; 81001; 84702; 85025; 36415; Q9967; J7050

== ENCOUNTER 2022-11-11 14:57 | Emergency (ER) | payer OTHER ==
[~2022-11-11] VITALS: Ht 160 cm; Wt 90.9 kg
[2022-11-11 15:23] VITALS: BP 154/115
== END 2022-11-11 16:43 | disposition left against medical advice (07) ==
LOC: EMS 14:59
DX: F25.0 Schizoaffective disorder, bipolar type (principal); F15.90 Other stimulant use, unspecified, uncomplicated; F41.9 Anxiety disorder, unspecified; F41.0 Panic disorder [episodic paroxysmal anxiety]; G89.29 Other chronic pain; Z88.0 Allergy status to penicillin; Z88.5 Allergy status to narcotic agent
CPT/HCPCS: 99281; Z7502

== ENCOUNTER 2022-11-16 11:42 | Inpatient (IN) | payer MEDICAID, OTHER ==
[~2022-11-16] VITALS: Ht 160 cm; Wt 81.6 kg
[2022-11-16] MEDS ORDERED: LORazepam 2 MG/ML VIAL ONE (12:27)
[2022-11-16] MEDS ORDERED: HALOPERIDOL LACTATE 5 MG/ML VIAL ONE (12:27)
[2022-11-16] MEDS ORDERED: DiphenhydrAMINE HCL 50 MG/ML VIAL ONE (12:27)
[2022-11-16] MEDS ORDERED: HALOPERIDOL LACTATE 5 MG/ML VIAL IM ONE (12:45)
[2022-11-16] MEDS ORDERED: LORazepam 2 MG/ML VIAL IM ONE (12:45)
[2022-11-16] MEDS ORDERED: DiphenhydrAMINE HCL 50 MG/ML VIAL IM ONE (12:45)
[2022-11-16 12:54] LABS: BASOPHILS % (AUTO) 0.5 % (0.0-2.0); EOSINOPHILS % (AUTO) 2.8 % (1.0-6.0); HEMATOCRIT 33.9 % (36-46); HEMOGLOBIN 10.9 g/dL (12.0-16.0); LYMPHOCYTES # (AUTO) 3.3 K/uL (1.0-4.8); LYMPHOCYTES % (AUTO) 41.9 % (22.0-44.0); MEAN CORPUSCULAR HGB CONC 32.2 G/dL (31.0-37.0); MEAN CORPUSCULAR VOLUME 90 fL (80-100); MONOCYTES # (AUTO) 0.4 K/uL (0.1-1.0); MONOCYTES % (AUTO) 5.5 % (2.0-9.0); NEUTROPHILS # (AUTO) 3.9 K/uL (1.8-7.7); NEUTROPHILS % (AUTO) 49.3 % (40.0-70.0); PLATELET COUNT (AUTO) 318 K/uL (150-450); RED BLOOD CELL COUNT(AUTO) 3.77 MIL/uL (4.00-5.20); RED CELL DISTRIBUTION WIDTH 14.7 % (11.5-14.5)
[2022-11-16 13:10] LABS: ALANINE AMINOTRANSFERASE 19 U/L (12-78); ALBUMIN 3.7 g/dL (3.4-5.0); ALKALINE PHOSPHATASE 58 U/L (46-116); ANION GAP 9 mmol/L (8-16); ASPARTATE AMINOTRANSFERASE 19 U/L (15-37); BILIRUBIN,TOTAL 0.2 mg/dL (0.1-1.0); CALCIUM, TOTAL 9.1 mg/dL (8.8-10.5); CARBON DIOXIDE 27 mmol/L (22-29); CHLORIDE 104 mmol/L (98-107); CREATININE 0.95 mg/dL (0.60-1.30); GLOMERULAR FILTR. RATE CALC > 60 mL/min (>60); GLUCOSE,RANDOM 78 mg/dL (70-110); SODIUM SERUM 140 mmol/L (136-145); UREA NITROGEN, BLOOD 20 mg/dL (7-18)
[2022-11-16 13:15] LABS: POTASSIUM 2.9 mmol/L (3.5-5.1)
[2022-11-16] MEDS ORDERED: POTASSIUM CHLORIDE 20 MEQ ER TABLET PO ONE (13:15)
[2022-11-16 14:08] LABS: COVID AG,FIA SOURCE NASOPHARYNGEAL
[2022-11-16] MEDS ORDERED: ALPR-709 PO (14:26)
[2022-11-16] MEDS ORDERED: QUEtiapine FUMARATE 100 MG TABLET PO PRN (14:30)
[2022-11-17] MEDS: LORazepam 2 MG TABLET PO PRN ×2 (11:45→17:52)
[2022-11-17 19:07] LABS: AMPHET/METH SCREEN,URINE NEGATIVE (NEGATIVE); BARBITURATE SCREEN, URINE NEGATIVE (NEGATIVE); BENZODIAZEPINES SCREEN,URINE POSITIVE (NEGATIVE); CANNABINOID SCREEN,URINE NEGATIVE (NEGATIVE); COCAINE SCREEN,URINE NEGATIVE (NEGATIVE); METHADONE SCREEN, URINE POSITIVE (NEGATIVE); OPIATE SCREEN,URINE NEGATIVE (NEGATIVE); PHENCYCLIDINE SCREEN,URINE NEGATIVE (NEGATIVE)
[2022-11-17] MEDS: ZOLPIDEM TARTRATE 10 MG TABLET PO PRN (20:42)
[2022-11-17 21:50] VITALS: BP 120/75
[2022-11-18] MEDS ORDERED: ACETAMINOPHEN 325 MG TABLET PO PRN (06:30)
[2022-11-18] MEDS ORDERED: GuaiFENesin/D-METHORPHAN [SUGAR-FREE] 200-20MG/10 ML SYRUP UDCUP PO PRN (06:30)
[2022-11-18] MEDS ORDERED: DOCUSATE SODIUM 100 MG CAPSULE PO PRN (06:30)
[2022-11-18] MEDS ORDERED: IBUPROFEN 400 MG TABLET PO PRN (06:30)
[2022-11-18] MEDS ORDERED: ALBUTEROL SULFATE HFA 90 MCG/PUFF 8 GM INHALER IH PRN (06:30)
[2022-11-18] MEDS ORDERED: MAGNESIUM HYDROXIDE SUSPENSION 30 ML UDCUP PO PRN (06:30)
[2022-11-18] MEDS ORDERED: MAG HYDROX/AL HYDROX/SIMETH ES 30 ML SUSPENSION UDCUP PO PRN (06:30)
[2022-11-18] MEDS ORDERED: ONDANSETRON HCL 4 MG TABLET PO PRN (06:30)
[2022-11-18] MEDS ORDERED: PETROLATUM,WHITE 28 GM JELLY TP PRN (06:30)
[2022-11-18] MEDS ORDERED: LOPERAMIDE HCL 2 MG CAPSULE PO PRN (06:30)
[2022-11-18] MEDS ORDERED: CloNIDine HCL 0.1 MG TABLET PO PRN (06:30)
[2022-11-18 08:01] VITALS: BP 138/86
[2022-11-18] MEDS: LevETIRAcetam 500 MG TABLET PO SCH ×2 (08:44→17:44)
[2022-11-18] MEDS: LORazepam 2 MG TABLET PO PRN ×3 (08:44→22:01)
[2022-11-18] MEDS: METHADONE HCL 10 MG/5 ML SOLUTION ORAL.SYG PO SCH (08:53)
[2022-11-18] MEDS ORDERED: POTASSIUM CHLORIDE 20 MEQ ER TABLET PO ONE (09:00)
[2022-11-18] MEDS ORDERED: PRAZ2 PO (12:10)
[2022-11-18] MEDS ORDERED: CLON1TAB12 PO (12:10)
[2022-11-18] MEDS: FLUoxetine HCL 20 MG CAPSULE PO SCH (13:03)
[2022-11-18] MEDS: BuPROPion HCL XL 150 MG ER TABLET PO SCH (13:04)
[2022-11-18] MEDS: BusPIRone HCL 5 MG TABLET PO SCH ×3 (13:20→20:45)
[2022-11-18 16:12] VITALS: BP 106/64
[2022-11-18] MEDS: ZOLPIDEM TARTRATE 10 MG TABLET PO PRN (20:45)
[2022-11-18 20:51] VITALS: BP 109/82
[2022-11-19] MEDS: FLUoxetine HCL 20 MG CAPSULE PO SCH (08:21)
[2022-11-19] MEDS: LevETIRAcetam 500 MG TABLET PO SCH ×2 (08:22→16:23)
[2022-11-19] MEDS: BusPIRone HCL 5 MG TABLET PO SCH ×3 (08:23→21:04)
[2022-11-19] MEDS: BuPROPion HCL XL 150 MG ER TABLET PO SCH (08:23)
[2022-11-19 08:35] VITALS: BP 141/87
[2022-11-19] MEDS: METHADONE HCL 10 MG/5 ML SOLUTION ORAL.SYG PO SCH (08:41)
[2022-11-19] MEDS: LORazepam 2 MG TABLET PO PRN ×3 (08:50→22:15)
[2022-11-19 16:50] VITALS: BP 108/64
[2022-11-19] MEDS: NICOTINE 14 MG/24 HOUR PATCH TD PRN (16:54)
[2022-11-19] MEDS: ZOLPIDEM TARTRATE 10 MG TABLET PO PRN (21:04)
[2022-11-20 01:52] VITALS: BP 136/67
[2022-11-20 08:01] VITALS: BP 123/79
[2022-11-20] MEDS: FLUoxetine HCL 20 MG CAPSULE PO SCH (08:25)
[2022-11-20] MEDS: LevETIRAcetam 500 MG TABLET PO SCH ×2 (08:25→16:37)
[2022-11-20] MEDS: BuPROPion HCL XL 150 MG ER TABLET PO SCH (08:26)
[2022-11-20] MEDS: BusPIRone HCL 5 MG TABLET PO SCH ×4 (08:26→22:56)
[2022-11-20] MEDS: LORazepam 2 MG TABLET PO PRN ×3 (08:26→21:01)
[2022-11-20] MEDS: METHADONE HCL 10 MG/5 ML SOLUTION ORAL.SYG PO SCH (08:27)
[2022-11-20 16:07] VITALS: BP 112/67
[2022-11-20] MEDS: NICOTINE 14 MG/24 HOUR PATCH TD PRN (16:37)
[2022-11-20] MEDS: MUPIROCIN CALCIUM 2% 22 GM OINTMENT NASAL SCH (19:22)
[2022-11-20] MEDS: ZOLPIDEM TARTRATE 10 MG TABLET PO PRN (21:01)
[2022-11-20 21:13] VITALS: BP 142/85
[2022-11-21] MEDS: LevETIRAcetam 500 MG TABLET PO SCH ×2 (08:21→16:13)
[2022-11-21] MEDS: FLUoxetine HCL 20 MG CAPSULE PO SCH (08:22)
[2022-11-21] MEDS: BuPROPion HCL XL 150 MG ER TABLET PO SCH (08:23)
[2022-11-21] MEDS: MUPIROCIN CALCIUM 2% 22 GM OINTMENT NASAL SCH ×2 (08:23→16:12)
[2022-11-21] MEDS: BusPIRone HCL 5 MG TABLET PO SCH ×2 (08:23→16:13)
[2022-11-21] MEDS: METHADONE HCL 10 MG/5 ML SOLUTION ORAL.SYG PO SCH (08:35)
[2022-11-21] MEDS: LORazepam 2 MG TABLET PO PRN ×2 (08:35→12:42)
[2022-11-21 08:49] VITALS: BP 113/72
[2022-11-21] MEDS: NICOTINE 14 MG/24 HOUR PATCH TD PRN (10:01)
[2022-11-21 16:30] VITALS: BP 132/72
== END 2022-11-21 17:50 | disposition left against medical advice (07) | DRG 753 ==
LOC: EMS 11:44 → 3EC 11-17 16:03
PROVIDERS: ADMIT Psychiatry & Neurology Psychiatry; ATTEND Psychiatry & Neurology Psychiatry
DX: F31.5 Bipolar disorder, current episode depressed, severe, with psychotic features (principal); G40.909 Epilepsy, unspecified, not intractable, without status epilepticus; D64.9 Anemia, unspecified; E87.6 Hypokalemia; F19.10 Other psychoactive substance abuse, uncomplicated; Z20.822 Contact with and (suspected) exposure to COVID-19; G89.4 Chronic pain syndrome; Z53.29 Procedure and treatment not carried out because of patient's decision for other reasons; F10.10 Alcohol abuse, uncomplicated; Y90.9 Presence of alcohol in blood, level not specified; F15.90 Other stimulant use, unspecified, uncomplicated; F11.90 Opioid use, unspecified, uncomplicated; F42.9 Obsessive-compulsive disorder, unspecified; F41.0 Panic disorder [episodic paroxysmal anxiety]; Z88.0 Allergy status to penicillin; Z88.5 Allergy status to narcotic agent
CPT/HCPCS: 80053; 80307; 84132; 85025; 87081; 99291; G0480; J1200; J1630; J2060; Q0162

== ENCOUNTER 2023-06-28 16:06 | Emergency (ER) | payer MEDICAID, OTHER ==
[~2023-06-28] VITALS: Ht 154.9 cm; Wt 90.4 kg
[~2023-06-28 16:06] MED LIST changes: +ACET-2247 PO; +ALPR-709 PO; +BISA10SU11 PR; -BUPR-50 PO; +BUPR450T3 PO; -BUSP5TAB20 PO; +CLON-595 PO; +DOCU-385 PO; -FLUO20CA36 PO; +HEPA500018 SQ; -LEVE500T20 PO; +LEVO500P13 IV; +MAGN-169 PO; +METH10 PO; +MUPI15CR12 TP; +ONDA-104 PO; +PANT-31 PO; +PRAZ2 PO; +ZOLP-280 PO
[2023-06-28 16:45] VITALS: BP 145/83; PULSE 82; RESP 16; TEMP 98.3
[2023-06-28 17:29] LABS: BASOPHILS % (AUTO) 0.2 % (0.0-2.0); EOSINOPHILS % (AUTO) 1.2 % (1.0-6.0); HEMATOCRIT 37.1 % (36-46); HEMOGLOBIN 12.3 g/dL (12.0-16.0); LYMPHOCYTES # (AUTO) 1.9 K/uL (1.0-4.8); LYMPHOCYTES % (AUTO) 18.8 % (22.0-44.0); MEAN CORPUSCULAR HEMOGLOBIN 29.8 pg (26.0-34.0); MEAN CORPUSCULAR VOLUME 90 fL (80-100); MONOCYTES # (AUTO) 0.5 K/uL (0.1-1.0); MONOCYTES % (AUTO) 5.2 % (2.0-9.0); NEUTROPHILS # (AUTO) 7.4 K/uL (1.8-7.7); NEUTROPHILS % (AUTO) 74.6 % (40.0-70.0); PLATELET COUNT (AUTO) 290 K/uL (150-450); RED BLOOD CELL COUNT(AUTO) 4.11 MIL/uL (4.00-5.20); RED CELL DISTRIBUTION WIDTH 14.1 % (11.5-14.5); WHITE BLOOD COUNT (AUTO) 9.9 K/uL (4.5-11.0)
[2023-06-28] MEDS ORDERED: LORazepam 1 MG TABLET PO ONE (17:30)
[2023-06-28] MEDS ORDERED: HALOPERIDOL 5 MG TABLET PO ONE (17:30)
[2023-06-28 17:34] LABS: ANION GAP 10 mmol/L (8-16); CALCIUM, TOTAL 9.5 mg/dL (8.8-10.5); CARBON DIOXIDE 26 mmol/L (22-29); CHLORIDE 102 mmol/L (98-107); CREATININE 0.84 mg/dL (0.60-1.30); GLOMERULAR FILTR. RATE CALC > 60 mL/min (>60); GLUCOSE,RANDOM 76 mg/dL (70-110); SODIUM SERUM 138 mmol/L (136-145); UREA NITROGEN, BLOOD 16 mg/dL (7-18)
[2023-06-28] MEDS ORDERED: FLUO20CA36 PO ×2 (17:34→18:03)
[2023-06-28] MEDS ORDERED: LEVE10006 PO ×2 (17:34→18:03)
[2023-06-28] MEDS ORDERED: BUPR-50 PO ×2 (17:34→18:03)
[2023-06-28] MEDS ORDERED: BUSP10TA23 PO ×2 (17:34→18:03)
[2023-06-28 17:40] LABS: ALANINE AMINOTRANSFERASE 31 U/L (12-78); ALBUMIN 3.8 g/dL (3.4-5.0); ALKALINE PHOSPHATASE 63 U/L (46-116); ASPARTATE AMINOTRANSFERASE 17 U/L (15-37); BILIRUBIN,TOTAL 0.2 mg/dL (0.1-1.0); TOTAL PROTEIN, SERUM 7.9 g/dL (6.4-8.2)
[2023-06-28 17:43] LABS: ALCOHOL, BLOOD (SERUM) < 3 mg/dL (0-10)
[2023-06-28] MEDS ORDERED: CLON-595 PO (18:03)
[2023-06-28] MEDS ORDERED: PRAZ2 PO (18:03)
== END 2023-06-28 18:33 | disposition home or self-care (01) ==
LOC: EMS 16:09
DX: F25.0 Schizoaffective disorder, bipolar type (principal); F41.9 Anxiety disorder, unspecified; G89.29 Other chronic pain; Z88.0 Allergy status to penicillin; Z88.5 Allergy status to narcotic agent
CPT/HCPCS: 99284; 80053; 84703; 85025; 36415; G0480

== ENCOUNTER 2023-08-02 15:53 | Emergency (ER) | payer OTHER ==
[~2023-08-02] VITALS: Ht 172.7 cm; Wt 100.0 kg
[~2023-08-02 15:53] MED LIST changes: +BUPR-50 PO; -BUPR450T3 PO; +BUSP10TA23 PO; +FLUO20CA36 PO; +LEVE10006 PO; -LEVO500P13 IV; -MUPI15CR12 TP
[2023-08-02 16:12] VITALS: TEMP 98
[2023-08-02] MEDS ORDERED: LEVE500T20 PO (16:17)
[2023-08-02 17:04] LABS: BASOPHILS % (AUTO) 0.7 % (0.0-2.0); EOSINOPHILS % (AUTO) 4.6 % (1.0-6.0); LYMPHOCYTES # (AUTO) 2.4 K/uL (1.0-4.8); LYMPHOCYTES % (AUTO) 37.8 % (22.0-44.0); MEAN CORPUSCULAR HEMOGLOBIN 30.5 pg (26.0-34.0); MEAN CORPUSCULAR HGB CONC 33.3 G/dL (31.0-37.0); MEAN CORPUSCULAR VOLUME 92 fL (80-100); MONOCYTES # (AUTO) 0.3 K/uL (0.1-1.0); MONOCYTES % (AUTO) 5.3 % (2.0-9.0); NEUTROPHILS # (AUTO) 3.2 K/uL (1.8-7.7); NEUTROPHILS % (AUTO) 51.6 % (40.0-70.0); PLATELET COUNT (AUTO) 236 K/uL (150-450); RED BLOOD CELL COUNT(AUTO) 3.61 MIL/uL (4.00-5.20); WHITE BLOOD COUNT (AUTO) 6.3 K/uL (4.5-11.0)
[2023-08-02 17:10] LABS: ANION GAP 5 mmol/L (8-16); CALCIUM, TOTAL 8.8 mg/dL (8.8-10.5); CARBON DIOXIDE 27 mmol/L (22-29); CHLORIDE 105 mmol/L (98-107); CREATININE 0.84 mg/dL (0.60-1.30); GLOMERULAR FILTR. RATE CALC > 60 mL/min (>60); GLUCOSE,RANDOM 103 mg/dL (70-110); POTASSIUM 3.8 mmol/L (3.5-5.1); SODIUM SERUM 137 mmol/L (136-145); UREA NITROGEN, BLOOD 19 mg/dL (7-18)
[2023-08-02 17:13] LABS: COVID AG,FIA SOURCE NASAL SWAB
[2023-08-02 17:16] LABS: ALCOHOL, BLOOD (SERUM) < 3 mg/dL (0-10)
[2023-08-02 17:17] LABS: ALANINE AMINOTRANSFERASE 34 U/L (12-78); ALBUMIN 3.4 g/dL (3.4-5.0); ALKALINE PHOSPHATASE 61 U/L (46-116); ASPARTATE AMINOTRANSFERASE 19 U/L (15-37); BILIRUBIN,TOTAL 0.1 mg/dL (0.1-1.0); TOTAL PROTEIN, SERUM 7.2 g/dL (6.4-8.2)
[2023-08-02 17:31] LABS: SARS-COV2 (COVID) ANTIGEN,FIA Negative (Negative)
[2023-08-03 02:39] LABS: ALCOHOL, URINE DRUG SCREEN NEGATIVE (NEGATIVE); AMPHET/METH SCREEN,URINE NEGATIVE (NEGATIVE); BARBITURATE SCREEN, URINE NEGATIVE (NEGATIVE); BENZODIAZEPINES SCREEN,URINE NEGATIVE (NEGATIVE); CANNABINOID SCREEN,URINE NEGATIVE (NEGATIVE); COCAINE SCREEN,URINE NEGATIVE (NEGATIVE); METHADONE SCREEN, URINE NEGATIVE (NEGATIVE); OPIATE SCREEN,URINE NEGATIVE (NEGATIVE); PHENCYCLIDINE SCREEN,URINE NEGATIVE (NEGATIVE)
[2023-08-03 08:46] VITALS: BP 112/68; PULSE 72; RESP 16
== END 2023-08-03 09:04 | disposition home or self-care (01) ==
LOC: EMS 15:54
DX: T65.91XA Toxic effect of unspecified substance, accidental (unintentional), initial encounter (principal); F41.9 Anxiety disorder, unspecified; F31.9 Bipolar disorder, unspecified; G89.29 Other chronic pain; Z88.0 Allergy status to penicillin; Z88.5 Allergy status to narcotic agent; Z20.822 Contact with and (suspected) exposure to COVID-19
CPT/HCPCS: 99285; 87426; 80053; 85025; 36415; 80307; G0480

== ENCOUNTER 2024-03-22 16:37 | Emergency (ER) | payer OTHER ==
[~2024-03-22] VITALS: Ht 154.9 cm; Wt 84.1 kg
[~2024-03-22 16:37] MED LIST changes: -ALPR-709 PO; -BUPR-50 PO; +BUPR-514 PO; +FLUO-418 PO; -FLUO20CA36 PO; +LEVE-71 PO; -LEVE10006 PO
[2024-03-22 16:47] VITALS: BP 130/90; PULSE 78; RESP 20; TEMP 98.3
[2024-03-22] MEDS ORDERED: FERR325T23 PO (19:12)
[2024-03-22] MEDS: IBUPROFEN 600 MG TABLET PO ONE (19:13)
[2024-03-22] MEDS ORDERED: IBUP-1492 PO (19:36)
== END 2024-03-22 19:43 | disposition home or self-care (01) ==
LOC: EMS 16:40
DX: S70.12XA Contusion of left thigh, initial encounter (principal); F41.9 Anxiety disorder, unspecified; F31.9 Bipolar disorder, unspecified; F20.9 Schizophrenia, unspecified; F11.90 Opioid use, unspecified, uncomplicated; Z88.0 Allergy status to penicillin; Z88.5 Allergy status to narcotic agent; X58.XXXA Exposure to other specified factors, initial encounter; Y93.89 Activity, other specified; Y92.89 Other specified places as the place of occurrence of the external cause; Y99.8 Other external cause status
CPT/HCPCS: 99282; Z7502; Z7610

== ENCOUNTER 2024-12-01 15:46 | Emergency (ER) | payer OTHER ==
[~2024-12-01] VITALS: Ht 154.9 cm; Wt 88.6 kg
[~2024-12-01 15:46] MED LIST changes: -ACET-2247 PO; -BISA10SU11 PR; +BUPR-433 PO; -BUPR-514 PO; -CLON-595 PO; +CLON0.5T4 PO; -DOCU-385 PO; -HEPA500018 SQ; -ONDA-104 PO; -PANT-31 PO; -PRAZ2 PO; -ZOLP-280 PO
[2024-12-01 15:56] VITALS: TEMP 98.6
[2024-12-01 16:48] LABS: BASOPHILS % (AUTO) 0.6 % (0.0-2.0); EOSINOPHILS % (AUTO) 2.7 % (1.0-6.0); HEMOGLOBIN 11.6 g/dL (12.0-16.0); LYMPHOCYTES # (AUTO) 1.5 K/uL (1.0-4.8); LYMPHOCYTES % (AUTO) 25.6 % (22.0-44.0); MEAN CORPUSCULAR HEMOGLOBIN 28.4 pg (26.0-34.0); MEAN CORPUSCULAR HGB CONC 32.2 G/dL (31.0-37.0); MEAN CORPUSCULAR VOLUME 88 fL (80-100); MONOCYTES # (AUTO) 0.3 K/uL (0.1-1.0); MONOCYTES % (AUTO) 4.8 % (2.0-9.0); NEUTROPHILS % (AUTO) 66.3 % (40.0-70.0); PLATELET COUNT (AUTO) 286 K/uL (150-450); RED BLOOD CELL COUNT(AUTO) 4.08 MIL/uL (4.00-5.20); RED CELL DISTRIBUTION WIDTH 14.5 % (11.5-14.5)
[2024-12-01 16:57] LABS: ANION GAP 7 mmol/L (8-16); CALCIUM, TOTAL 8.5 mg/dL (8.8-10.5); CARBON DIOXIDE 26 mmol/L (22-29); CHLORIDE 104 mmol/L (98-107); CREATININE 0.73 mg/dL (0.60-1.30); GLOMERULAR FILTR. RATE CALC > 60 mL/min (>60); GLUCOSE,RANDOM 109 mg/dL (70-110); LIPASE 80 U/L (16-77); POTASSIUM 3.9 mmol/L (3.5-5.1); SODIUM SERUM 137 mmol/L (136-145); UREA NITROGEN, BLOOD 9 mg/dL (7-18)
[2024-12-01 17:04] LABS: ALCOHOL, BLOOD (SERUM) < 3 mg/dL (0-10)
[2024-12-01 17:05] LABS: LACTIC ACID 1.4 mmol/L (0.4-2.0)
[2024-12-01 18:08] VITALS: BP 168/90; PULSE 80; RESP 20; O2SAT 100
[2024-12-01] MEDS: LevETIRAcetam 500 MG TABLET PO ONE (20:19)
[2024-12-01] MEDS: BuPROPion HCL 150 MG SR TABLET PO ONE (20:20)
[2024-12-01] MEDS: ClonazePAM 1 MG TABLET PO ONE (20:20)
[2024-12-01] MEDS: BusPIRone HCL 10 MG TABLET PO ONE (20:20)
[2024-12-01] MEDS: FLUoxetine HCL 20 MG CAPSULE PO ONE (20:21)
[2024-12-01] MEDS ORDERED: CLON-592 PO (21:14)
[2024-12-01] MEDS ORDERED: LEVE-71 PO (21:14)
[2024-12-01] MEDS ORDERED: BUPR-433 PO (21:14)
== END 2024-12-01 21:36 | disposition home or self-care (01) ==
LOC: EMS 15:46
DX: G40.909 Epilepsy, unspecified, not intractable, without status epilepticus (principal); F31.9 Bipolar disorder, unspecified; F20.9 Schizophrenia, unspecified; F41.9 Anxiety disorder, unspecified; Z88.0 Allergy status to penicillin; Z88.5 Allergy status to narcotic agent; Z59.00 Homelessness unspecified; Z79.899 Other long term (current) drug therapy
CPT/HCPCS: 99284; 80048; 83605; 83690; 84703; 85025; 36415; G0480

== ENCOUNTER 2024-12-15 13:50 | Emergency (ER) | payer OTHER ==
[~2024-12-15 13:50] MED LIST changes: -BUPR-433 PO; -BUSP10TA23 PO; +CIPR250T6 PO; -CLON0.5T4 PO; +CLOT15CR29 TP; -FLUO-418 PO; -MAGN-169 PO
== END 2024-12-15 15:37 | disposition left against medical advice (07) ==
LOC: EMS 13:53
DX: R50.9 Fever, unspecified (principal); R51.9 Headache, unspecified; Z53.21 Procedure and treatment not carried out due to patient leaving prior to being seen by health care provider

== ENCOUNTER 2025-02-13 14:28 | Inpatient (IN) | payer MEDICAID, OTHER ==
[~2025-02-13] VITALS: Ht 167.6 cm; Wt 78.6 kg
[2025-02-13 15:16] LABS: PLATELET COUNT (AUTO) 236 K/uL (150-450); RED BLOOD CELL COUNT(AUTO) 3.92 MIL/uL (4.00-5.20); RED CELL DISTRIBUTION WIDTH 15.0 % (11.5-14.5); WHITE BLOOD COUNT (AUTO) 6.0 K/uL (4.5-11.0)
[2025-02-13 15:26] LABS: CALCIUM, TOTAL 8.9 mg/dL (8.8-10.5); CREATININE 0.78 mg/dL (0.60-1.30); GLOMERULAR FILTR. RATE CALC > 60 mL/min (>60); GLUCOSE,RANDOM 87 mg/dL (70-110); SODIUM SERUM 135 mmol/L (136-145); UREA NITROGEN, BLOOD 11 mg/dL (7-18)
[2025-02-13 16:21] LABS: COVID AG,FIA SOURCE NASAL SWAB
[2025-02-13] MEDS: POTASSIUM CHLORIDE 20 MEQ ER TABLET PO ONE (16:23)
[2025-02-13 16:53] LABS: SARS-COV2 (COVID) ANTIGEN,FIA Negative (Negative)
[2025-02-13] MEDS ORDERED: OLANZapine 5 MG RAPDIS TABLET PO PRN (17:45)
[2025-02-13] MEDS ORDERED: ZOLPIDEM TARTRATE 10 MG TABLET PO PRN (17:45)
[2025-02-13] MEDS ORDERED: TUBERCULIN, PURIFIED PROTEIN DERIVATIVE 5 TU/0.1 ML SYRINGE ID ONE (17:45)
[2025-02-13] MEDS ORDERED: MAG HYDROX/ALUMINUM HYD/SIMETH ES 30 ML SUSPENSION UDCUP PO PRN (17:45)
[2025-02-13] MEDS: MELATONIN 5 MG TABLET PO SCH (20:32)
[2025-02-13] MEDS: THIAMINE 100 MG TABLET PO SCH (20:32)
[2025-02-13] MEDS: OLANZapine 5 MG RAPDIS TABLET PO SCH (20:33)
[2025-02-13] MEDS: DIVALPROEX SODIUM 500 MG ER TABLET PO SCH (20:34)
[2025-02-14 08:11] VITALS: BP 100/70; PULSE 77; RESP 16; TEMP 97.3; O2SAT 97
[2025-02-14 08:20] VITALS: BP 113/78; PULSE 78; RESP 17; TEMP 97.4; O2SAT 98
[2025-02-14] MEDS: PALIPERIDONE PALMITATE 234 MG/1.5 ML SYRINGE IM ONE (09:00)
[2025-02-14] MEDS: MULTIVITAMINS WITH MINERALS, THERAPEUTIC TABLET PO SCH (09:35)
[2025-02-14] MEDS: FOLIC ACID 1 MG TABLET PO SCH (09:35)
[2025-02-14] MEDS ORDERED: GABAPENTIN 300 MG CAPSULE PO PRN (17:15)
[2025-02-14] MEDS: CIPROFLOXACIN HCL 250 MG TABLET PO SCH (17:27)
[2025-02-14 20:25] VITALS: BP 109/83; PULSE 85; RESP 18; TEMP 97.3; O2SAT 93
[2025-02-15 08:20] VITALS: BP 120/74; PULSE 79; RESP 16; TEMP 96.9; O2SAT 96
[2025-02-15 10:10] LABS: CALCIUM, TOTAL 8.8 mg/dL (8.8-10.5); CREATININE 0.75 mg/dL (0.60-1.30); GLOMERULAR FILTR. RATE CALC > 60 mL/min (>60); GLUCOSE,RANDOM 81 mg/dL (70-110); SODIUM SERUM 142 mmol/L (136-145); UREA NITROGEN, BLOOD 8 mg/dL (7-18)
[2025-02-15 10:27] LABS: CHOL/HDL RATIO 2.8 (3.9-5.7); LDL CHOL (CALC.) 121.0 mg/dL (0-130)
[2025-02-15 20:26] VITALS: BP 118/65; PULSE 60; RESP 18; TEMP 97.9; O2SAT 97
[2025-02-15] MEDS: OLANZapine 10 MG RAPDIS TABLET PO SCH (20:41)
[2025-02-16 08:05] VITALS: BP 126/74; PULSE 74; RESP 17; TEMP 97.3; O2SAT 99
[2025-02-16] MEDS: NALTREXONE HCL 50 MG TABLET PO SCH (08:34)
[2025-02-16] MEDS: GuaiFENesin/D-METHORPHAN [SUGAR-FREE] 200-20MG/10 ML SYRUP UDCUP PO PRN (11:35)
[2025-02-16] MEDS ORDERED: MAG HYDROX/ALUMINUM HYD/SIMETH ES 30 ML SUSPENSION UDCUP PO PRN (15:30)
[2025-02-16] MEDS: CYANOCOBALAMIN 1,000 MCG/ML VIAL IM ONE (15:30)
[2025-02-16] MEDS ORDERED: LOPERAMIDE HCL 2 MG CAPSULE PO PRN (15:30)
[2025-02-16] MEDS ORDERED: GuaiFENesin/D-METHORPHAN [SUGAR-FREE] 200-20MG/10 ML SYRUP UDCUP PO PRN (15:30)
[2025-02-16] MEDS: MAGNESIUM HYDROXIDE SUSPENSION 30 ML UDCUP PO PRN (15:52)
[2025-02-16] MEDS: PROMETHAZINE HCL 25 MG TABLET PO PRN (16:03)
[2025-02-16] MEDS: THIAMINE 100 MG TABLET PO SCH (16:20)
[2025-02-16 18:35] VITALS: BP 129/78; PULSE 70; RESP 45; TEMP 97.7; O2SAT 98
[2025-02-16] MEDS: ONDANSETRON HCL 4 MG/2 ML VIAL IM PRN (18:54)
[2025-02-16] MEDS: DIVALPROEX SODIUM 500 MG ER TABLET PO SCH (20:41)
[2025-02-16 22:38] VITALS: BP 138/89; PULSE 73; RESP 24; TEMP 97.3; O2SAT 97
[2025-02-16 22:50] VITALS: BP 138/89; PULSE 73; RESP 24; TEMP 97.3; O2SAT 97
[2025-02-17] VITALS (11 sets, daily range): BP systolic 103–148; BP diastolic 57–79; PULSE 57–78; RESP 16–22; TEMP 97.4–98.9; O2SAT 95–99
[2025-02-17] MEDS: FOLIC ACID 1 MG TABLET PO SCH (08:10)
[2025-02-17] MEDS: MULTIVITAMINS WITH MINERALS, THERAPEUTIC TABLET PO SCH (08:11)
[2025-02-17] MEDS: POTASSIUM CHLORIDE 20 MEQ ER TABLET PO ONE ×2 (14:55→16:24)
[2025-02-18 06:19] VITALS: BP 128/82; PULSE 66; RESP 18; TEMP 97.6; O2SAT 97
[2025-02-18 06:39] VITALS: BP 130/82; PULSE 80; RESP 17; TEMP 97.1; O2SAT 96
[2025-02-18] MEDS: METHADONE HCL 10 MG/5 ML SOLUTION ORAL.SYG PO SCH (08:24)
[2025-02-18 08:27] VITALS: BP 126/81; PULSE 79; RESP 17; TEMP 97.2; O2SAT 93
[2025-02-18] MEDS ORDERED: PALIPERIDONE PALMITATE 156 MG/ML SYRINGE IM ONE (09:00)
[2025-02-18 09:28] VITALS: BP 126/81; PULSE 79; RESP 17; TEMP 97.2; O2SAT 95
[2025-02-18 10:06] LABS: CALCIUM, TOTAL 9.3 mg/dL (8.8-10.5); CREATININE 0.80 mg/dL (0.60-1.30); GLOMERULAR FILTR. RATE CALC > 60 mL/min (>60); GLUCOSE,RANDOM 116 mg/dL (70-110); SODIUM SERUM 139 mmol/L (136-145); UREA NITROGEN, BLOOD 12 mg/dL (7-18)
[2025-02-18] MEDS: POTASSIUM CHLORIDE 20 MEQ ER TABLET PO ONE (15:05)
[2025-02-18] MEDS: LOPERAMIDE HCL 2 MG CAPSULE PO PRN (15:15)
[2025-02-18 20:52] VITALS: BP 104/59; PULSE 65; RESP 18; TEMP 97; O2SAT 100
[2025-02-18 23:50] VITALS: BP 124/80; PULSE 80; RESP 18; TEMP 97.5; O2SAT 92
[2025-02-19 06:00] VITALS: BP 108/82; PULSE 64; RESP 18; TEMP 97.5; O2SAT 98
[2025-02-19 09:27] VITALS: BP 134/99; PULSE 63; RESP 17; TEMP 97.1; O2SAT 99
[2025-02-19 09:37] VITALS: BP 134/99; PULSE 63; RESP 18; TEMP 97.1; O2SAT 100
[2025-02-19 16:03] VITALS: BP 118/98; PULSE 88; RESP 18; O2SAT 98
[2025-02-19] MEDS: METHADONE HCL 10 MG TABLET PO ONE (17:48)
[2025-02-19 21:01] VITALS: BP 107/64; PULSE 55; RESP 18; TEMP 97.8; O2SAT 99
[2025-02-20 02:58] VITALS: BP 107/64; RESP 18; TEMP 97.8; O2SAT 99
[2025-02-20 08:18] VITALS: BP 118/74; PULSE 83; RESP 16; TEMP 97.6; O2SAT 98
[2025-02-20 13:42] VITALS: BP 123/69; PULSE 80; RESP 16; TEMP 97.6; O2SAT 97
[2025-02-20 16:34] VITALS: BP 122/78; PULSE 68; RESP 17; TEMP 97.8; O2SAT 98
[2025-02-20 21:44] VITALS: BP 114/79; PULSE 84; RESP 17; TEMP 97.6; O2SAT 97
[2025-02-21 06:13] VITALS: BP 126/81; PULSE 78; RESP 17; TEMP 97.8; O2SAT 98
[2025-02-21 08:25] VITALS: BP 107/57; PULSE 66; RESP 16; TEMP 97.9; O2SAT 97
[2025-02-21] MEDS: METHADONE HCL 10 MG/5 ML SOLUTION ORAL.SYG PO ONE (09:08)
[2025-02-21 10:28] VITALS: BP 104/72; PULSE 64; RESP 18; TEMP 97.1; O2SAT 97
[2025-02-21 20:19] VITALS: BP 105/57; PULSE 60; RESP 16; TEMP 97.1; O2SAT 95
[2025-02-21 22:23] VITALS: BP 109/62; PULSE 61; RESP 17; TEMP 96.5; O2SAT 100
[2025-02-22 06:20] VITALS: BP 111/66; PULSE 70; RESP 18; TEMP 97; O2SAT 99
[2025-02-22 08:17] VITALS: BP 123/70; PULSE 70; RESP 16; TEMP 98; O2SAT 96
[2025-02-22] MEDS: METHADONE HCL 10 MG TABLET PO SCH (08:21)
[2025-02-22 10:15] VITALS: BP 123/70; PULSE 70; RESP 16; TEMP 98; O2SAT 96
[2025-02-22 20:22] VITALS: BP 117/86; PULSE 65; RESP 17; TEMP 97.5; O2SAT 97
[2025-02-22 20:24] VITALS: BP 117/86; PULSE 65; RESP 17; TEMP 97.5; O2SAT 97
[2025-02-22] MEDS: ESZOPICLONE 3 MG TABLET PO SCH (22:28)
[2025-02-23 08:18] VITALS: BP 98/60; PULSE 71; RESP 16; TEMP 97.9; O2SAT 95
[2025-02-23 12:57] VITALS: BP 124/80; PULSE 74; RESP 18; O2SAT 99
[2025-02-23 16:12] VITALS: BP 124/80; PULSE 74; RESP 18; TEMP 97.9; O2SAT 99
[2025-02-23] MEDS: DIVALPROEX SODIUM 250 MG ER TABLET PO SCH (20:48)
[2025-02-23 21:00] VITALS: BP 114/81; PULSE 59; RESP 16; TEMP 97.4; O2SAT 97
[2025-02-23 21:09] VITALS: BP 114/81; PULSE 59; RESP 16; TEMP 97.4; O2SAT 97
[2025-02-24] VITALS (8 sets, daily range): BP systolic 89–126; BP diastolic 57–87; PULSE 72–90; RESP 16–18; TEMP 95.4–97.6; O2SAT 96–100
[2025-02-24] MEDS: ACETAMINOPHEN 325 MG TABLET PO PRN (10:15)
[2025-02-25 06:21] VITALS: BP 96/53; PULSE 59
[2025-02-25 08:35] VITALS: BP 115/69; PULSE 79; RESP 18; TEMP 97.6
[2025-02-25] MEDS: OLANZapine 5 MG RAPDIS TABLET PO PRN (13:41)
[2025-02-25 14:35] VITALS: BP 124/74; PULSE 74; RESP 17; TEMP 97.5; O2SAT 98
[2025-02-25 20:00] VITALS: BP_SYST 115; BP_SYST 124; BP_DIAS 69; BP_DIAS 74; PULSE 74; PULSE 79; RESP 18; TEMP 97.5; TEMP 97.6
[2025-02-25] MEDS: GABAPENTIN 300 MG CAPSULE PO PRN (21:03)
[2025-02-25 21:43] VITALS: BP 114/69; PULSE 77; RESP 16; TEMP 97.3; O2SAT 96
[2025-02-26 05:43] VITALS: BP 105/53; PULSE 61; RESP 20; TEMP 97.2; O2SAT 98
[2025-02-26 08:00] VITALS: BP 106/59; PULSE 66; RESP 16; TEMP 97.7; O2SAT 96
[2025-02-26 08:16] VITALS: BP 106/59; PULSE 66; RESP 16; TEMP 97.7; O2SAT 96
[2025-02-26 12:34] VITALS: BP 131/70; PULSE 98; RESP 18
[2025-02-26 20:00] VITALS: BP 112/66; PULSE 75; RESP 18; TEMP 97.9
[2025-02-26 20:44] VITALS: BP 103/57; RESP 17; O2SAT 97
[2025-02-27 08:37] VITALS: BP 147/75; PULSE 87; RESP 16; TEMP 97.7; O2SAT 92
[2025-02-27 10:16] VITALS: BP 147/75; PULSE 87; RESP 16; TEMP 97.7
[2025-02-27] MEDS: IBUPROFEN 600 MG TABLET PO PRN (18:17)
[2025-02-27 20:10] VITALS: BP 135/72; PULSE 90; RESP 17; TEMP 97.8; O2SAT 99
[2025-02-27 20:35] VITALS: BP 135/72; PULSE 90; RESP 17; TEMP 97.8; O2SAT 99
== END 2025-02-28 10:18 | disposition short-term general hospital (02) | DRG 750 ==
LOC: EMS 14:32 → UNDOADMIN 17:43 → EDH 17:43 → B3A 02-14 02:20
PROVIDERS: ADMIT Psychiatry & Neurology Psychiatry; ATTEND Psychiatry & Neurology Psychiatry
PROC: GZHZZZZ Group Psychotherapy (ICD-10-PCS; principal; 2025-02-14)
PROC: GZ58ZZZ Individual Psychotherapy, Cognitive-Behavioral (ICD-10-PCS; 2025-02-14)
PROC: GZ56ZZZ Individual Psychotherapy, Supportive (ICD-10-PCS; 2025-02-15)
DX: F25.0 Schizoaffective disorder, bipolar type (principal); L02.416 Cutaneous abscess of left lower limb; G40.909 Epilepsy, unspecified, not intractable, without status epilepticus; D64.9 Anemia, unspecified; F17.200 Nicotine dependence, unspecified, uncomplicated; F15.20 Other stimulant dependence, uncomplicated; Z20.822 Contact with and (suspected) exposure to COVID-19; G89.29 Other chronic pain; F41.9 Anxiety disorder, unspecified; K21.9 Gastro-esophageal reflux disease without esophagitis; F11.20 Opioid dependence, uncomplicated; G47.00 Insomnia, unspecified; F12.20 Cannabis dependence, uncomplicated; F10.20 Alcohol dependence, uncomplicated; Y90.0 Blood alcohol level of less than 20 mg/100 ml; K59.00 Constipation, unspecified; E66.9 Obesity, unspecified; J44.9 Chronic obstructive pulmonary disease, unspecified; Z88.0 Allergy status to penicillin; Z88.5 Allergy status to narcotic agent; Z87.440 Personal history of urinary (tract) infections; Z68.28 Body mass index [BMI] 28.0-28.9, adult; Z59.00 Homelessness unspecified
CPT/HCPCS: 80048; 80061; 80164; 83036; 84132; 84439; 84443; 84703; 85025; 86592; 99285; G0378; G0480; J2405

== ENCOUNTER → 2025-02-17 | Emergency (ER) | payer MEDICAID, OTHER ==
[~2025-02-17] VITALS: Ht 154.9 cm; Wt 79.0 kg
[2025-02-17 00:32] VITALS: TEMP 97.9
[2025-02-17 01:13] LABS: BASOPHILS % (AUTO) 0.2 % (0.0-2.0); EOSINOPHILS % (AUTO) 0.4 % (1.0-6.0); HEMATOCRIT 41.4 % (36-46); HEMOGLOBIN 13.7 g/dL (12.0-16.0); LYMPHOCYTES # (AUTO) 0.8 K/uL (1.0-4.8); LYMPHOCYTES % (AUTO) 4.8 % (22.0-44.0); MEAN CORPUSCULAR HEMOGLOBIN 27.7 pg (26.0-34.0); MEAN CORPUSCULAR VOLUME 84 fL (80-100); MONOCYTES # (AUTO) 0.5 K/uL (0.1-1.0); MONOCYTES % (AUTO) 2.7 % (2.0-9.0); NEUTROPHILS # (AUTO) 16.2 K/uL (1.8-7.7); PLATELET COUNT (AUTO) 389 K/uL (150-450); RED BLOOD CELL COUNT(AUTO) 4.93 MIL/uL (4.00-5.20); RED CELL DISTRIBUTION WIDTH 15.1 % (11.5-14.5); WHITE BLOOD COUNT (AUTO) 17.7 K/uL (4.5-11.0)
[2025-02-17 01:15] LABS: NEUTROPHILS % (AUTO) 91.9 % (40.0-70.0)
[2025-02-17 01:21] LABS: ANION GAP 9 mmol/L (8-16); CALCIUM, TOTAL 10.2 mg/dL (8.8-10.5); CARBON DIOXIDE 29 mmol/L (22-29); CHLORIDE 98 mmol/L (98-107); CREATININE 0.77 mg/dL (0.60-1.30); GLOMERULAR FILTR. RATE CALC > 60 mL/min (>60); GLUCOSE,RANDOM 158 mg/dL (70-110); POTASSIUM 3.3 mmol/L (3.5-5.1); SODIUM SERUM 136 mmol/L (136-145); UREA NITROGEN, BLOOD 12 mg/dL (7-18)
[2025-02-17] MEDS: SODIUM CHLORIDE 0.9% 1,000 ML IV ONE (01:24)
[2025-02-17] MEDS: METHADONE HCL 10 MG TABLET PO ONE (02:13)
[2025-02-17 02:53] VITALS: BP 148/70; PULSE 61; RESP 17; O2SAT 98
== END | disposition still patient (30) ==
LOC: EMS 00:17
DX: R11.2 Nausea with vomiting, unspecified (principal); F31.9 Bipolar disorder, unspecified; F20.9 Schizophrenia, unspecified; F42.9 Obsessive-compulsive disorder, unspecified; G89.29 Other chronic pain; F19.90 Other psychoactive substance use, unspecified, uncomplicated; F15.90 Other stimulant use, unspecified, uncomplicated; F14.90 Cocaine use, unspecified, uncomplicated; F11.90 Opioid use, unspecified, uncomplicated; Z98.890 Other specified postprocedural states; Z88.0 Allergy status to penicillin; Z79.899 Other long term (current) drug therapy
CPT/HCPCS: 99285; 96360; 80048; 85025; 36415; G0480; J7030